=== PATIENT | female | born 1990 | race Two or more races ===

== ENCOUNTER 2019-05-17 09:08 | Emergency (ER) | payer OTHER ==
[~2019-05-17] VITALS: Ht 172.7 cm; Wt 65.8 kg
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
--- NOTE | 2019-05-17 09:15 | NUR ---
AT BEDSIDE FOR EVAL.
[2019-05-17] MEDS ORDERED: ACETAMINOPHEN ES 500 MG TABLET ONE (09:25)
[2019-05-17] MEDS ORDERED: ACETAMINOPHEN ES 500 MG TABLET PO ONE (09:30)
--- NOTE | 2019-05-17 09:33 | NUR ---
US TECH AT BEDSIDE
--- NOTE | 2019-05-17 10:38 | NUR ---
Patient discharged to home in stable condition. Written and verbal after care instructions given. Patient verbalizes understanding of instruction.
[2019-05-17 10:39] VITALS: BP 109/63
== END 2019-05-17 10:40 | disposition home or self-care (01) ==
LOC: ER 09:12
DX: O9A.212 Injury, poisoning and certain other consequences of external causes complicating pregnancy, second trimester (principal); S16.1XXA Strain of muscle, fascia and tendon at neck level, initial encounter; S20.212A Contusion of left front wall of thorax, initial encounter; V49.49XA Driver injured in collision with other motor vehicles in traffic accident, initial encounter; Y93.89 Activity, other specified; Y92.413 State road as the place of occurrence of the external cause; Y99.8 Other external cause status; Z3A.16 16 weeks gestation of pregnancy
CPT/HCPCS: 76805-TC